=== PATIENT | male | born 1960 | race African-American/Black ===

== ENCOUNTER 2024-10-29 07:11 | Emergency (ER) | payer MEDICAID ==
[~2024-10-29] VITALS: Ht 170.2 cm; Wt 90.4 kg
[2024-10-29 09:13] LABS: BASO % 0.5 % (0.0-1.0); EOS # 0.2 10^3/uL (0.0-0.5); EOS % 2.7 % (0.0-3.0); HEMATOCRIT 45.9 % (42.0-52.0); LYMPH # 1.4 10^3/uL (1.5-5.0); LYMPH % 22.8 % (24.0-44.0); MEAN CORPUSCULAR HEMOGLOBIN 31.2 pg (27.0-33.0); MEAN CORPUSCULAR HGB CONC 32.7 g/dl (32.0-36.5); MEAN CORPUSCULAR VOLUME 95.4 fl (80.0-96.0); MONO # 0.4 10^3/uL (0.0-0.8); MONO % 7.1 % (2.0-8.0); NEUTROPHILS # 3.9 10^3/uL (1.5-8.5); NEUTROPHILS % 66.4 % (36.0-66.0); PLATELET COUNT, AUTOMATED 243 10^3/uL (150-450); RED BLOOD COUNT 4.81 10^6/uL (4.30-6.10); WHITE BLOOD COUNT 5.9 10^3/uL (4.0-10.0)
[2024-10-29 09:17] LABS: ERYTHROCYTE SEDIMENTATION RATE 94 mm/hr (0-20)
[2024-10-29 09:19] LABS: BLOOD UREA NITROGEN 17 MG/DL (9-23); C REACTIVE PROTEIN QUANTITATIV 3.34 MG/DL (<1.0); CALCIUM LEVEL 9.3 MG/DL (8.3-10.6); CARBON DIOXIDE LEVEL 23 MMOL/L (20-31); CHLORIDE LEVEL 106 MMOL/L (98-107); CREATININE FOR GFR 0.88 MG/DL (0.70-1.30); GLOMERULAR FILTRATION RATE > 60.0 (>49); GLUCOSE, FASTING 117 MG/DL (74-106); POTASSIUM SERUM 4.3 MMOL/L (3.5-5.1); SODIUM LEVEL 140 MMOL/L (136-145)
[2024-10-29 09:20] LABS: URIC ACID 10.2 MG/DL (3.7-9.2)
[2024-10-29] MEDS ORDERED: LISI10TA22 PO (10:13)
[2024-10-29] MEDS ORDERED: INDO50CA91 PO (10:13)
[2024-10-29] MEDS: INDOMETHACIN 25 MG CAP PO ONE (10:49)
[2024-10-29 11:28] VITALS: BP 135/89; TEMP 97.2; O2SAT 98
== END 2024-10-29 11:31 | disposition home or self-care (01) ==
LOC: M ED 07:11
DX: M10.062 Idiopathic gout, left knee (principal); I10 Essential (primary) hypertension; G47.33 Obstructive sleep apnea (adult) (pediatric); F41.9 Anxiety disorder, unspecified; F32.A Depression, unspecified; F17.290 Nicotine dependence, other tobacco product, uncomplicated

== ENCOUNTER → 2024-11-20 | Outpatient (REF) | payer MEDICAID ==
[~2024-11-20] MED LIST: INDO50CA91 PO; LISI10TA22 PO; MIRT-11; PRED20TA PO
[2024-11-20 14:33] LABS: Trichomonas vaginalis (AMP) NOT DETECTED (NEGATIVE)
[2024-11-20 14:40] LABS: ALBUMIN 4.3 G/DL (3.2-5.2); ALKALINE PHOSPHATASE 127 U/L (40-129); ALT/SGPT 24 U/L (7.0-40); AST/SGOT 22 U/L (<34); BILIRUBIN,TOTAL 0.2 MG/DL (0.3-1.2); BLOOD UREA NITROGEN 16 MG/DL (9-23); CALCIUM LEVEL 9.8 MG/DL (8.3-10.6); CARBON DIOXIDE LEVEL 21 MMOL/L (20-31); CHLORIDE LEVEL 107 MMOL/L (98-107); CHOLESTEROL LEVEL 265 MG/DL (<200); CHOLESTEROL RISK RATIO 6.93 (<5); CREATININE FOR GFR 1.06 MG/DL (0.70-1.30); GLOMERULAR FILTRATION RATE > 60.0 (>49); GLUCOSE, FASTING 108 MG/DL (74-106); HDL CHOLESTEROL 38.2 MG/DL (>40); NON-HDL-C 226.8 MG/DL; POTASSIUM SERUM 5.2 MMOL/L (3.5-5.1); SODIUM LEVEL 140 MMOL/L (136-145); THYROID STIMULATING HORMONE 1.978 uIU/ML (0.55-4.78); TOTAL 25(OH) VITAMIN D 9.4 NG/ML (20.0-100.0); TOTAL PROTEIN 9.1 G/DL (5.7-8.2); TRIGLYCERIDES LEVEL 575 MG/DL (<150)
[2024-11-20 14:57] LABS: GC DNA AMPLIFICATION NEGATIVE (NEGATIVE)
[2024-11-20 15:10] LABS: HIV 1&2 SCREEN NEGATIVE (NEGATIVE)
[2024-11-20 15:18] LABS: HEPATITIS C VIRUS ABY INDEX 0.03 INDEX (<0.8)
[2024-11-20 15:26] LABS: HEMOGLOBIN A1c 5.9 % (4.0-6.0)
== END ==
LOC: M LAB REF 11:55
PROVIDERS: ATTEND Physician Assistant
DX: I10 Essential (primary) hypertension (principal); Z11.9 Encounter for screening for infectious and parasitic diseases, unspecified; E55.9 Vitamin D deficiency, unspecified; Z12.5 Encounter for screening for malignant neoplasm of prostate; E66.9 Obesity, unspecified

== ENCOUNTER 2024-11-22 09:27 | Emergency (ER) | payer MEDICAID ==
[~2024-11-22] VITALS: Ht 170.2 cm; Wt 89.4 kg
[~2024-11-22 09:27] MED LIST changes: -MIRT-11; -PRED20TA PO
[2024-11-22] MEDS ORDERED: MIRT-11 (09:41)
[2024-11-22] MEDS: KETOROLAC 30 MG/ML 1ML VIAL IV ONE (12:31)
[2024-11-22 12:36] LABS: BASO # 0.1 10^3/uL (0.0-0.2); BASO % 0.4 % (0.0-1.0); EOS # 0.3 10^3/uL (0.0-0.5); EOS % 2.4 % (0.0-3.0); HEMATOCRIT 44.7 % (42.0-52.0); LYMPH # 1.7 10^3/uL (1.5-5.0); LYMPH % 13.2 % (24.0-44.0); MEAN CORPUSCULAR HEMOGLOBIN 31.4 pg (27.0-33.0); MEAN CORPUSCULAR HGB CONC 33.6 g/dl (32.0-36.5); MEAN CORPUSCULAR VOLUME 93.7 fl (80.0-96.0); MONO # 0.9 10^3/uL (0.0-0.8); MONO % 7.4 % (2.0-8.0); NEUTROPHILS # 9.6 10^3/uL (1.5-8.5); NEUTROPHILS % 76.2 % (36.0-66.0); PLATELET COUNT, AUTOMATED 198 10^3/uL (150-450); RED BLOOD COUNT 4.77 10^6/uL (4.30-6.10); WHITE BLOOD COUNT 12.6 10^3/uL (4.0-10.0)
[2024-11-22 12:48] LABS: ERYTHROCYTE SEDIMENTATION RATE 99 mm/hr (0-20)
[2024-11-22 13:04] LABS: URIC ACID 10.8 MG/DL (3.7-9.2)
[2024-11-22 13:08] LABS: C REACTIVE PROTEIN QUANTITATIV 9.25 MG/DL (<1.0); CALCIUM LEVEL 9.2 MG/DL (8.3-10.6); CREATININE FOR GFR 1.49 MG/DL (0.70-1.30); GLOMERULAR FILTRATION RATE 52.7 (>49); POTASSIUM SERUM 4.6 MMOL/L (3.5-5.1)
[2024-11-22] MEDS: LIDOCAINE W/EPINEPHRINE 1% 20ML VIAL SC ONE (15:15)
[2024-11-22] MEDS ORDERED: PRED20TA PO (16:26)
[2024-11-22] MEDS: predniSONE 20 MG TAB PO ONE (16:33)
[2024-11-22 16:45] VITALS: BP 132/93; TEMP 98.2; O2SAT 96
== END 2024-11-22 17:00 | disposition home or self-care (01) ==
LOC: M ED 09:27
DX: M17.12 Unilateral primary osteoarthritis, left knee (principal); M02.86 Other reactive arthropathies, knee; M25.462 Effusion, left knee; I10 Essential (primary) hypertension; F17.200 Nicotine dependence, unspecified, uncomplicated; Z79.899 Other long term (current) drug therapy; Z79.52 Long term (current) use of systemic steroids
CPT/HCPCS: 20610; 73502; 73564; 80048; 84550; 85025; 85652; 86140; 87040; 96374; 99284; J1885; J7512

== ENCOUNTER → 2024-12-02 | Outpatient (CLI) | payer MEDICAID ==
[~2024-12-02] MED LIST changes: +MIRT-11; +PRED20TA PO
== END ==
LOC: M RAD 10:20
PROVIDERS: ATTEND Physician Assistant
DX: Z12.2 Encounter for screening for malignant neoplasm of respiratory organs (principal); F17.210 Nicotine dependence, cigarettes, uncomplicated; J98.11 Atelectasis

== ENCOUNTER → 2024-12-12 | Outpatient (REF) | payer MEDICAID ==
[2024-12-12 12:28] LABS: BASO % 0.7 % (0.0-1.0); EOS # 0.2 10^3/uL (0.0-0.5); EOS % 2.8 % (0.0-3.0); HEMATOCRIT 46.2 % (42.0-52.0); HEMOGLOBIN 14.9 g/dl (13.5-17.5); LYMPH # 1.5 10^3/uL (1.5-5.0); LYMPH % 26.2 % (24.0-44.0); MEAN CORPUSCULAR HEMOGLOBIN 30.7 pg (27.0-33.0); MEAN CORPUSCULAR HGB CONC 32.3 g/dl (32.0-36.5); MEAN CORPUSCULAR VOLUME 95.1 fl (80.0-96.0); MONO # 0.4 10^3/uL (0.0-0.8); MONO % 7.7 % (2.0-8.0); NEUTROPHILS # 3.5 10^3/uL (1.5-8.5); NEUTROPHILS % 61.9 % (36.0-66.0); PLATELET COUNT, AUTOMATED 154 10^3/uL (150-450); RED BLOOD COUNT 4.86 10^6/uL (4.30-6.10); WHITE BLOOD COUNT 5.7 10^3/uL (4.0-10.0)
[2024-12-12 12:37] LABS: URIC ACID 9.7 MG/DL (3.7-9.2)
[2024-12-12 12:38] LABS: BLOOD UREA NITROGEN 13 MG/DL (9-23); CALCIUM LEVEL 9.2 MG/DL (8.3-10.6); CARBON DIOXIDE LEVEL 24 MMOL/L (20-31); CHLORIDE LEVEL 108 MMOL/L (98-107); GLOMERULAR FILTRATION RATE > 90.0 (>49); GLUCOSE, FASTING 186 MG/DL (74-106); POTASSIUM SERUM 4.4 MMOL/L (3.5-5.1); SODIUM LEVEL 141 MMOL/L (136-145)
== END ==
LOC: M LAB REF 11:43
PROVIDERS: ATTEND Physician Assistant
DX: M10.9 Gout, unspecified (principal)

== ENCOUNTER → 2025-04-09 | Outpatient (REF) | payer OTHER, MEDICAID ==
[~2025-04-09] MED LIST changes: +ALLO100T; +ATOR40TA75; +LISI20TA33; +MIRT1TAB17; +VITA200032
[2025-04-09 12:36] LABS: CALCIUM LEVEL 9.2 MG/DL (8.3-10.6); CARBON DIOXIDE LEVEL 20.0 MMOL/L (20-31); CHLORIDE LEVEL 107.0 MMOL/L (98-107); CREATININE FOR GFR 0.97 MG/DL (0.70-1.30); GLOMERULAR FILTRATION RATE 88.3 (>49); POTASSIUM SERUM 4.2 MMOL/L (3.5-5.1); SODIUM LEVEL 140.0 MMOL/L (136-145)
== END ==
LOC: M LAB REF 12:11
PROVIDERS: ATTEND Physician Assistant
DX: M10.9 Gout, unspecified (principal)

== ENCOUNTER 2025-05-26 14:49 | Inpatient (IN) | payer MEDICAID, OTHER ==
[~2025-05-26 14:49] MED LIST changes: -ALLO100T; +ALLO100T PO; -LISI20TA33; +LISI20TA33 PO; -MIRT1TAB17; +MIRT1TAB17 PO; -VITA200032; +VITA200032 PO
[2025-05-26 15:37] LABS: BASO # 0.0 10^3/uL (0.0-0.2); BASO % 0.3 % (0.0-1.0); EOS # 0.1 10^3/uL (0.0-0.5); EOS % 0.8 % (0.0-3.0); LYMPH # 1.3 10^3/uL (1.5-5.0); LYMPH % 13.5 % (24.0-44.0); MONO # 0.7 10^3/uL (0.0-0.8); MONO % 6.8 % (2.0-8.0); NEUTROPHILS # 7.6 10^3/uL (1.5-8.5); NEUTROPHILS % 78.2 % (36.0-66.0); PLATELET COUNT, AUTOMATED 261 10^3/uL (150-450)
[2025-05-26] MEDS: NS (Normal Saline) 0.9% 1,000 ML IV ONE (16:36)
[2025-05-26 17:25] LABS: ALT/SGPT 11 U/L (7.0-40); AST/SGOT 12 U/L (<34); CALCIUM LEVEL 8.6 MG/DL (8.3-10.6); CARBON DIOXIDE LEVEL 14 MMOL/L (20-31); CHLORIDE LEVEL 109 MMOL/L (98-107); CREATININE FOR GFR 6.07 MG/DL (0.70-1.30); GLOMERULAR FILTRATION RATE 9.8 (>49); POTASSIUM SERUM 5.0 MMOL/L (3.5-5.1); SODIUM LEVEL 135 MMOL/L (136-145)
[2025-05-26 18:41] LABS: VENOUS BASE EXCESS -10.9 (-2.0-2.0); VENOUS HCO3 16.6 MMOL/L (23.0-27.0); VENOUS O2 SATURATION 51.8 % (60.0-80.0); VENOUS PARTIAL PRESSURE CO2 42.6 mmHg (38.0-50.0); VENOUS PARTIAL PRESSURE O2 30.1 mmHg (30.0-50.0); VENOUS PH 7.208 UNITS (7.330-7.430); VENOUS STANDARD HCO3 15.1 MMOL/L; VENOUS TOTAL CO2 17.9 MMOL/L (24.0-28.0)
[2025-05-26 18:54] LABS: KETONE, URINE AUTO RFX NEGATIVE (NEGATIVE); LEUKOCYTE ESTERASE UR AUTO RFX NEGATIVE (NEGATIVE); MUCUS, URINE RFX SMALL (NEGATIVE); NITRITE, URINE AUTO RFX NEGATIVE (NEGATIVE); RBC, URINE AUTO RFX 0 /HPF (0-3); SQUAM EPITHELIAL CELL UR AURFX 0 /HPF (0-6); WBC, URINE AUTO RFX 1 /HPF (0-3)
[2025-05-26] MEDS ORDERED: ATOR40TA75 PO (18:59)
[2025-05-26] MEDS ORDERED: LOPE-26 PO (18:59)
[2025-05-26] MEDS ORDERED: SERT50TA29 PO (19:00)
[2025-05-26] MEDS ORDERED: HOME MED LIST COMPLETE! XX SCH (19:00)
[2025-05-26] MEDS: SODIUM BICARBONATE 150 MEQ in STERILE WATER LITER BAG 1,000 ML IV SCH (19:42)
[2025-05-26] MEDS ORDERED: MOM 30 ML SUSPENSION UDC PO PRN (21:00)
[2025-05-26] MEDS: DOCUSATE SODIUM 100 MG CAPSULE PO SCH (21:00)
[2025-05-26] MEDS ORDERED: MAALOX 30 ML SUSP *UDC PO PRN (21:00)
[2025-05-26 21:47] LABS: POTASSIUM RANDOM URINE 22.0 MMOL/L; SODIUM,RANDOM URINE 58.0 MMOL/L
[2025-05-27] VITALS (11 sets, daily range): BP systolic 107–128; BP diastolic 58–76; TEMP 97.1–98.6; O2SAT 89–98
[2025-05-27] MEDS: NS (Normal Saline) 0.9% 1,000 ML IV ONE (03:00)
[2025-05-27] MEDS: ACETAMINOPHEN *IV* 1,000 MG in IV 1 EA IV ONE (06:19)
[2025-05-27 06:46] LABS: PLATELET COUNT, AUTOMATED 234 10^3/uL (150-450)
[2025-05-27 06:55] LABS: ERYTHROCYTE SEDIMENTATION RATE 83 mm/hr (0-20)
[2025-05-27 07:08] LABS: C REACTIVE PROTEIN QUANTITATIV 3.08 MG/DL (<1.0); COMPLEMENT C4 55.6 MG/DL (12-36)
[2025-05-27 07:16] LABS: HEPATITIS B SURFACE ANTIBODY NEGATIVE (POSITIVE)
[2025-05-27 07:49] LABS: HEPATITIS C VIRUS ABY INDEX 0.02 INDEX (<0.8)
[2025-05-27 07:52] LABS: ALT/SGPT 12 U/L (7.0-40); AST/SGOT 13 U/L (<34); CALCIUM LEVEL 7.9 MG/DL (8.3-10.6); CARBON DIOXIDE LEVEL 18 MMOL/L (20-31); CHLORIDE LEVEL 111 MMOL/L (98-107); CREATININE FOR GFR 2.63 MG/DL (0.70-1.30); GLOMERULAR FILTRATION RATE 26.7 (>49); MAGNESIUM LEVEL 2.0 MG/DL (1.8-2.4); POTASSIUM SERUM 4.6 MMOL/L (3.5-5.1); SODIUM LEVEL 137 MMOL/L (136-145)
[2025-05-27] MEDS: SERTRALINE HCL 50 MG TAB PO SCH (11:01)
[2025-05-27] MEDS: THIAMINE 200MG 2ML VIAL IV SCH (11:02)
[2025-05-27] MEDS: FOLIC ACID 1 MG TAB PO SCH (11:02)
[2025-05-27] MEDS: HEPARIN SOD 5000 UNITS/ML 1 ML VIAL/SYRINGE SC SCH (11:02)
[2025-05-27] MEDS: ATORVASTATIN 20 MG TAB PO SCH (11:02)
[2025-05-27] MEDS: MULTIVITAMINS/MINERALS THERAP 1 TAB PO SCH (11:02)
[2025-05-27] MEDS: ONDANSETRON 4MG 2ML VIAL IV PRN (16:33)
[2025-05-27] MEDS: ACETAMINOPHEN 325 MG TAB PO PRN (16:39)
[2025-05-27] MEDS: MIRTAZAPINE 15 MG TAB PO SCH (20:53)
[2025-05-27] MEDS: LOPERAMIDE 2 MG CAPLET PO ONE (20:54)
[2025-05-28] VITALS (15 sets, daily range): BP systolic 101–119; BP diastolic 55–71; TEMP 97–98; O2SAT 90–97
[2025-05-28] MEDS: ONDANSETRON 4MG TAB PO SCH (06:00)
[2025-05-28 07:52] LABS: BASO # 0.0 10^3/uL (0.0-0.2); BASO % 0.3 % (0.0-1.0); EOS # 0.1 10^3/uL (0.0-0.5); EOS % 1.1 % (0.0-3.0); LYMPH # 1.9 10^3/uL (1.5-5.0); LYMPH % 30.7 % (24.0-44.0); MONO # 0.5 10^3/uL (0.0-0.8); MONO % 7.4 % (2.0-8.0); NEUTROPHILS # 3.8 10^3/uL (1.5-8.5); NEUTROPHILS % 60.3 % (36.0-66.0); PLATELET COUNT, AUTOMATED 237 10^3/uL (150-450)
[2025-05-28 08:18] LABS: CALCIUM LEVEL 8.1 MG/DL (8.3-10.6); CARBON DIOXIDE LEVEL 28.0 MMOL/L (20-31); CHLORIDE LEVEL 106.0 MMOL/L (98-107); CREATININE FOR GFR 1.05 MG/DL (0.70-1.30); GLOMERULAR FILTRATION RATE 80.3 (>49); POTASSIUM SERUM 4.2 MMOL/L (3.5-5.1); SODIUM LEVEL 143.0 MMOL/L (136-145)
[2025-05-28] MEDS: LOPERAMIDE 2 MG CAPLET PO PRN (12:52)
[2025-05-29] VITALS (7 sets, daily range): BP systolic 113–121; BP diastolic 69–75; TEMP 97.1–97.7; O2SAT 92–98
[2025-05-29 07:14] LABS: BASO # 0.0 10^3/uL (0.0-0.2); BASO % 0.5 % (0.0-1.0); EOS # 0.1 10^3/uL (0.0-0.5); EOS % 2.3 % (0.0-3.0); LYMPH # 1.6 10^3/uL (1.5-5.0); LYMPH % 26.8 % (24.0-44.0); MONO # 0.5 10^3/uL (0.0-0.8); MONO % 8.9 % (2.0-8.0); NEUTROPHILS # 3.7 10^3/uL (1.5-8.5); NEUTROPHILS % 61.2 % (36.0-66.0); PLATELET COUNT, AUTOMATED 230 10^3/uL (150-450)
[2025-05-29 07:39] LABS: CALCIUM LEVEL 8.1 MG/DL (8.3-10.6); CARBON DIOXIDE LEVEL 27 MMOL/L (20-31); CHLORIDE LEVEL 109 MMOL/L (98-107); CREATININE FOR GFR 0.89 MG/DL (0.70-1.30); GLOMERULAR FILTRATION RATE > 90.0 (>49); POTASSIUM SERUM 4.4 MMOL/L (3.5-5.1); SODIUM LEVEL 143 MMOL/L (136-145)
[2025-05-29] MEDS ORDERED: ONDA-282 PO (10:02)
[2025-05-29] MEDS ORDERED: NORV5TAB PO (10:02)
[2025-05-29 13:37] LABS: MYELOPEROXIDASE ANTIBODY < 1.0 AI (<1.0)
== END 2025-05-29 12:14 | disposition home or self-care (01) | DRG 469 ==
LOC: EDBD 14:49 → M ED 14:49 → M ED INP 20:59 → M PCU 05-27 04:31
PROVIDERS: ADMIT Student in an Organized Health Care Education/Training Program; ATTEND Student in an Organized Health Care Education/Training Program
DX: N17.9 Acute kidney failure, unspecified (principal); E87.20 Acidosis, unspecified; I10 Essential (primary) hypertension; G47.33 Obstructive sleep apnea (adult) (pediatric); M10.9 Gout, unspecified; D64.9 Anemia, unspecified; M19.90 Unspecified osteoarthritis, unspecified site; F10.90 Alcohol use, unspecified, uncomplicated; F32.A Depression, unspecified; Z96.641 Presence of right artificial hip joint; F17.210 Nicotine dependence, cigarettes, uncomplicated; R79.89 Other specified abnormal findings of blood chemistry; Z79.899 Other long term (current) drug therapy

== ENCOUNTER → 2025-06-11 | Outpatient (REF) | payer MEDICAID, OTHER ==
[~2025-06-11] MED LIST changes: +ATOR40TA75 PO; +LOPE-26 PO; +NORV5TAB PO; +ONDA-282 PO; +SERT50TA29 PO
[2025-06-11 16:54] LABS: BASO # 0.0 10^3/uL (0.0-0.2); BASO % 0.5 % (0.0-1.0); EOS # 0.2 10^3/uL (0.0-0.5); EOS % 2.4 % (0.0-3.0); LYMPH # 2.1 10^3/uL (1.5-5.0); LYMPH % 24.4 % (24.0-44.0); MONO # 0.4 10^3/uL (0.0-0.8); MONO % 5.0 % (2.0-8.0); NEUTROPHILS # 5.7 10^3/uL (1.5-8.5); NEUTROPHILS % 66.9 % (36.0-66.0); PLATELET COUNT, AUTOMATED 257 10^3/uL (150-450)
[2025-06-11 16:56] LABS: CALCIUM LEVEL 8.6 MG/DL (8.3-10.6); CARBON DIOXIDE LEVEL 24 MMOL/L (20-31); CHLORIDE LEVEL 108 MMOL/L (98-107); CREATININE FOR GFR 0.82 MG/DL (0.70-1.30); GLOMERULAR FILTRATION RATE > 90.0 (>49); POTASSIUM SERUM 4.3 MMOL/L (3.5-5.1); SODIUM LEVEL 141 MMOL/L (136-145)
== END ==
LOC: M LAB REF 16:24
PROVIDERS: ATTEND Physician Assistant
DX: N17.9 Acute kidney failure, unspecified (principal)